=== PATIENT | male | born 1980 | race Caucasian/White ===

== ENCOUNTER 2016-05-25 07:40 | Outpatient (CLI) | payer MEDICAID | END 2016-05-25 23:59 | DX: J03.90 Acute tonsillitis, unspecified (principal) ==

== ENCOUNTER 2017-12-21 12:27 | Emergency (ER) | payer MEDICAID, OTHER ==
[2017-12-21 12:34] VITALS: BP 130/71
--- NOTE | 2017-12-21 13:03 | ED Physician Documentation ---
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 No: Trauma, Anticoagulated, Cancer, IVDA Similar symptoms before: Diagnosis (low back pain/injury) Recently seen: Not recently seen Review of Systems Constitutional: denies: Fever, Chills Nose: denies: Rhinorrhea / runny nose, Congestion Cardiac: denies: Chest pain / pressure Respiratory: denies: Cough GI: denies: Abdominal Pain, Nausea, Vomiting, Diarrhea Skin: denies: Rash Musculoskeletal: denies: Neck pain Neurologic: denies: Headache PD PAST MEDICAL HISTORY - Past Medical History Past Medical History: No - Past Surgical History Past Surgical History: No - Present Medications Home Medications: Ambulatory Orders Medication Instructions Recorded Confirmed Meloxicam [Mobic] 15 mg PO DAILY PRN #20 tablet 12/21/17 tiZANidine [Zanaflex] 4 mg PO Q8H PRN #30 tablet 12/21/17 - Allergies Allergies/Adverse Reactions: Allergies Allergy/AdvReac Type Severity Reaction Status Date / Time No Known Drug Allergies Allergy Verified 12/21/17 12:34 - Social History Does the pt smoke?: Yes Smoking Status: Current every day smoker Does the pt drink ETOH?: No Does the pt have substance abuse?: No - Immunizations Immunizations are current?: Yes - POLST Patient has POLST: No PD ED PE NORMAL - Vitals Vital signs reviewed: Yes - General General: Alert and oriented X 3, No acute distress - HEENT HEENT: Moist mucous membranes - Neck Neck: Supple, no meningeal sign - Cardiac Cardiac: RRR - Respiratory Respiratory: No respiratory distress, Clear bilaterally - Abdomen Abdomen: Soft, Non tender, Non distended - Back Back: No spinal TTP (No tenderness to palpation or percussion), Other ( Paraspinal spasm left greater than right) - Derm Derm: Warm and dry, No rash - Extremities Extremities: Other (normal bilateral lower extremity patellar and ankle jerk reflexes. Normal great toe extension bilaterally. no saddle anesthesia) - Neuro Neuro: Alert and oriented X 3, No motor deficit, No sensory deficit - Psych Psych: Normal mood, Normal affect Results - Vitals Vitals: Vital Signs - 24 hr 12/21/17 12:31 Temperature 36.4 C L Heart Rate 77 Respiratory 18 Rate Blood Pressure 130/71 O2 Saturation 98 Oxygen O2 Source Room air PD MEDICAL DECISION MAKING - ED course Complexity details: reviewed results, re-evaluated patient, considered differential (no cauda equina, no spinal epidural abscess, no fracture, no aortic dissection or evidence of aneursym rupture), d/w patient ED course: Patient is a 37-year-old male who presents to the emergency department with low back pain, appears to be a left back strain. Possible sciatica down the left leg. No acute findings on examination. Mild paraspinal spasm, left greater than right. States that Motrin and tizanidine normally help. Will trial him on this and see how he progresses. Patient counseled regarding signs and symptoms for which I believe and urgent re-evaluation would be necessary. Patient with good understanding of and agreement to plan and is comfortable going home at this time This document was made in part using voice recognition software. While efforts are made to proofread this document, sound alike and grammatical errors may occur. - Sepsis Event Vital Signs: Vital Signs - 24 hr 12/21/17 12:31 Temperature 36.4 C L Heart Rate 77 Respiratory 18 Rate Blood Pressure 130/71 O2 Saturation 98 Oxygen O2 Source Room air Departure - Departure Disposition: 01 Home, Self Care Clinical Impression: Back spasm Low back pain Qualifiers: Chronicity: acute Back pain laterality: left Sciatica presence: with sciatica Sciatica laterality: sciatica of left side Qualified Code(s): M54.42 - Lumbago with sciatica, left side Condition: Good Instructions: ED Spasm Back No Trauma, ED Low Back Pain Injury Follow-Up: your,doctor in 1 week if not better [Other] Prescriptions: Meloxicam [Mobic] 15 mg PO DAILY PRN #20 tablet PRN Reason: pain tiZANidine [Zanaflex] 4 mg PO Q8H PRN #30 tablet PRN Reason: back spasm Comments: Take the medications as prescribed. Return if you worsen. Do not drive or operate heavy machinery while taking the tizanidine.
== END 2017-12-21 13:07 | disposition home or self-care (01) ==
LOC: ED 12:27
DX: R25.2 Cramp and spasm (principal); M54.42 Lumbago with sciatica, left side
CPT/HCPCS: 99283

== ENCOUNTER 2022-05-23 12:39 | Outpatient (CLI) | payer OTHER ==
--- NOTE | 2022-05-23 15:30 | XRAY Report ---
PROCEDURE: Finger(s) RT INDICATIONS: FINGER PAIN RIGHT TECHNIQUE: PA hand, 2 views of the left finger acquired. COMPARISON: None FINDINGS: Bones: No acute fractures or dislocations. No suspicious bony lesions. Soft tissues: No suspicious soft tissue calcifications. IMPRESSION: No acute osseous abnormality. If symptoms persist or there is continued clinical concern, further adria luation with MRI or CT may be helpful. Reviewed by: Ed Barrett MD on 05/23/2022 3:29 PM [facility] Approved by: Ed Barrett MD on 05/23/2022 3:29 PM [facility] Station ID: [id number]
== END 2022-05-23 12:40 | disposition home or self-care (01) ==
LOC: DI 12:39
PROVIDERS: ATTEND Physician Assistant Medical
DX: M79.644 Pain in right finger(s) (principal)